=== PATIENT | male | born 2000 | race Two or more races ===

== ENCOUNTER 2020-02-18 11:54 | Emergency (ER) | payer MEDICAID ==
[~2020-02-18] VITALS: Ht 185.4 cm; Wt 140.0 kg
[2020-02-18] MEDS ORDERED: IBUPROFEN 600MG TABLET PO ONE (14:30)
[2020-02-18 15:20] VITALS: BP 123/79
== END 2020-02-18 16:50 | disposition home or self-care (01) ==
LOC: ER 11:54
DX: S62.396A Other fracture of fifth metacarpal bone, right hand, initial encounter for closed fracture (principal); Z87.828 Personal history of other (healed) physical injury and trauma; Z98.890 Other specified postprocedural states; Y04.0XXA Assault by unarmed brawl or fight, initial encounter; Y93.89 Activity, other specified; Y92.89 Other specified places as the place of occurrence of the external cause
CPT/HCPCS: 29125; 73130; 99283